=== PATIENT | male | born 1940 ===

== ENCOUNTER 2017-04-12 05:50 | Emergency (ER) | payer OTHER ==
--- NOTE | 2017-04-12 05:58 | EDPHY ---
H & P Time Seen by Provider: 04/12/17 05:57 HPI/ROS: This 76-year-old male with past medical history of hypertension for which he takes lisinopril/hydrochlorothiazide presents to the emergency department today with swelling of his upper lip which he noticed at midnight last night when he got up to go to the bathroom. It seemed to be worse this morning so he presents with his for evaluation. He denies throat discomfort, difficulty swallowing, swollen tongue, chest pain, shortness of breath, abdominal pain, nausea or vomiting. He is not dizzy or lightheaded. He has not had this happen before. He has been taking this medication for approximately 2 years now. He has had no other recent medications or new foods or any other causative agent that he can identify. The remainder of the 10-point review of systems is negative. Past Medical/Surgical History: PMH: HTN, LVH, heart murmur PSH: Denied FH: Non-contributory Smoking Status: Former smoker Physical Exam: General: Alert and oriented x3, mildly anxious HEENT: Normocephalic, atraumatic, pupils equally round reactive to light and accommodation, extraocular movements intact, upper lip uniformly and mildly swollen, lower lip normal, uvula possibly slightly boggy but midline and airway is patent, tongue is normal Neck: Supple, nontender, no JVD Cardiac: Regular rate and rhythm, 2/6 murmur Lungs: Clear to auscultation bilaterally, no rales, rhonchi, or wheezing abdomen: Soft, nontender Extremities: Nontender, no edema Neurologic exam: Cranial nerves 2-12 grossly intact, moves all extremities well , ambulates without difficulty, nonfocal exam Constitutional: Initial Vital Signs Temperature (C) 97.9 F 04/12/17 05:55 Heart Rate 84 04/12/17 05:55 Respiratory Rate 16 04/12/17 05:55 Blood Pressure 160/80 H 04/12/17 05:55 O2 Sat (%) 96 04/12/17 05:55 O2 Delivery Mode Room Air Allergies/Adverse Reactions: PHILIP Inhibitors Allergy (Verified 04/12/17 06:32) Home Medications: Medication Instructions Recorded Lisinopril/Hctz 20/12.5MG 1 ea PO DAILY #30 tab 05/22/15 [Zestoretic/Prinzide 20/12.5MG (*)] Amlodipine Besylate [Norvasc] 5 mg PO DAILY #30 tablet 04/12/17 Famotidine [Pepcid] 20 mg PO DAILY #7 tablet 04/12/17 diphenhydrAMINE [Benadryl 25 MG 25 mg PO Q4-6PRN PRN #30 tab 04/12/17 (*)] predniSONE [predniSONE TAPER] 10 mg PO DAILY #14 ea 04/12/17 Medical Decision Making ED Course/Re-evaluation: The patient was seen and examined. VS and nursing notes reviewed. The patient received Decadron 10mg IVP, Benadryl 25 mg IVP and Pepcid 25mg IVP and monitored for about two hours. The lip swelling was diminishing and the patient felt better as well. He was advised to discontinue the Lisinopril/HCTZ and start Amlodipine as directed. He was given a Rx for Prednisone, Benadryl ( warned about urinary retention), and Pepcid. He should follow up with his primary care provider in the next couple of days or return to the ED immediately if symptoms worsen as discussed. Differential Diagnosis: Including but not limited to: allergic reaction, angioedema, ACEI angioedema - Data Points Laboratory Results: Laboratory Results 04/12/17 06:15 04/12/17 06:15 Medications Given: Discontinued Medications Dexamethasone (Decadron Injection) 10 mg IVP EDNOW ONE Stop: 04/12/17 06:02 Last Admin: 04/12/17 06:16 Dose: 10 mg Diphenhydramine HCl (Benadryl Injection) 25 mg IVP EDNOW ONE Stop: 04/12/17 06:02 Last Admin: 04/12/17 06:13 Dose: 25 mg Famotidine (Pepcid) 20 mg IVP EDNOW ONE Stop: 04/12/17 06:02 Last Admin: 04/12/17 06:15 Dose: 20 mg Departure - Departure Disposition: Home, Routine, Self-Care Clinical Impression: PHILIP inhibitor-aggravated angioedema Condition: Good Instructions: Angioedema (ED) Additional Instructions: Discontinue taking the Lisinopril/HCTZ. Start the Norvasc as directed. Take the Prednisone, Benadryl and Pepcid as directed. Call first thing Friday to arrange follow up with your primary care provider this week without fail. Return to the ED sooner if symtoms worsen as discussed. Referrals: Patient,NotPresent [Unknown] - As per Instructions Prescriptions: Amlodipine Besylate [Norvasc] 5 mg PO DAILY #30 tablet diphenhydrAMINE [Benadryl 25 MG (*)] 25 mg PO Q4-6PRN PRN #30 tab PRN Reason: lip swelling Famotidine [Pepcid] 20 mg PO DAILY #7 tablet predniSONE [predniSONE TAPER] 10 mg PO DAILY #14 ea
[2017-04-12] MEDS ORDERED: FAMOTIDINE 20 MG/2 ML SDV IVP ONE (06:01)
[2017-04-12] MEDS ORDERED: DEXAMETHASONE 10 MG/ML VIAL IVP ONE (06:01)
[2017-04-12 06:03] VITALS: RESP 16
[2017-04-12 06:19] LABS: HEMATOCRIT 45.2 % (40.0-51.0); HEMOGLOBIN 15.9 g/dL (13.7-17.5); MEAN CELL HEMOGLOBIN 30.3 pg (27.9-34.1); MEAN CELL HEMOGLOBIN CONCENTR. 35.2 g/dL (32.4-36.7); MEAN CELL VOLUME 86.3 fL (81.5-99.8); RED BLOOD CELL COUNT 5.24 10^6/uL (4.40-6.38); RED CELL DISTRIBUTION WIDTH 12.1 % (11.5-15.2)
[2017-04-12 06:30] LABS: CALCIUM 9.3 mg/dL (8.5-10.4); CREATININE 1.2 mg/dL (0.7-1.3); POTASSIUM 4.6 mEq/L (3.5-5.2)
[2017-04-12 06:39] VITALS: TEMP 98.2; O2SAT 94
[2017-04-12 07:55] VITALS: BP 132/80; PULSE 84
== END 2017-04-12 07:51 | disposition home or self-care (01) ==
LOC: CED 05:50
DX: T78.3XXA Angioneurotic edema, initial encounter (principal); T46.4X5A Adverse effect of angiotensin-converting-enzyme inhibitors, initial encounter; I10 Essential (primary) hypertension; Z87.891 Personal history of nicotine dependence
CPT/HCPCS: 96374; 96375; 99284; J1100; J1200; 80048-PO; 85027-PO